=== PATIENT | male | born 1945 | race Caucasian/White ===

== ENCOUNTER 2020-10-01 13:03 | Day surgery (SDC) | payer MEDICARE ==
[2020-09-28 12:57] LABS: Urine WBC None Seen /hpf (0 - 3)
[2020-09-28 12:59] LABS: Basophils # (auto) 0 10 ^3/uL (0-0.2); Basophils % (auto) 0.6 % (0.0-2.0); Eosinophils # (auto) 0.1 10 ^3/uL (0-0.8); Eosinophils % (auto) 1.2 % (0.0-7.0); Hematocrit 42.4 % (41.0-53.0); Hemoglobin 14.5 g/dL (13.5-17.5); Lymphocytes % (auto) 13.4 % (10.0-50.0); Mean Corpuscular Hemoglobin 33.3 pg (28.0-32.0); Mean Corpuscular Hgb Conc. 34.2 g/dL (32.0-36.0); Mean Corpuscular Volume 97.3 fL (80.0-100.0); Monocytes # (auto) 0.7 10 ^3/uL (0-1.3); Monocytes % (auto) 8.7 % (0.0-12.0); Neutrophils # (auto) 5.7 10 ^3/uL (1.6-8.6); Neutrophils % (auto) 76.1 % (37.0-80.0); Red Blood Cells 4.36 10^6/uL (4.5-5.90); Red Cell Distribution Width 13.4 % (11.8-14.3); White Blood Cell 7.6 10^3/uL (4.4-10.8)
[2020-09-28 13:07] LABS: Urine Bacteria NONE SEEN /hpf (None Seen); Urine Blood Negative /uL (Negative); Urine Specific Gravity 1.007 (1.001-1.035)
[2020-09-28 13:23] LABS: Albumin 4.2 g/dL (3.4-5.0); Calcium 8.7 mg/dL (8.5-10.1); Potassium 3.9 mmol/L (3.5-5.1)
[2020-09-28 13:26] LABS: BUN/Creatinine Ratio 14.1; Total Protein 8.4 g/dL (6.4-8.2)
[~2020-10-01] VITALS: Ht 177.8 cm; Wt 80.7 kg
[~2020-10-01 13:03] MED LIST: ATO40T PO; IRBE300T79 PO; OMEP20TA PO; SODI650T PO; VERA240C2 PO
[2020-10-01] MEDS ORDERED: SODIUM CHLORIDE LOCK 10 ML ONE (14:00)
[2020-10-01] MEDS ORDERED: diphenhdrAMINE HCL 50 MG/1 ML VL ONE (14:01)
[2020-10-01] MEDS: MIDAZOLAM HCL 5 MG/ML-1ML VIAL ONE ×2 (15:09→15:15)
[2020-10-01] MEDS: fentaNYL CITRATE 100 MCG/2 ML VL ONE ×2 (15:09→15:15)
[2020-10-08 15:45] VITALS: BP 129/79
== END 2020-10-01 16:10 | disposition home or self-care (01) ==
LOC: GI 13:03
PROVIDERS: ATTEND Internal Medicine Gastroenterology
DX: R19.4 Change in bowel habit (principal); D12.5 Benign neoplasm of sigmoid colon; K64.8 Other hemorrhoids; I10 Essential (primary) hypertension; Z88.0 Allergy status to penicillin; Z79.899 Other long term (current) drug therapy; Z20.822 Contact with and (suspected) exposure to COVID-19; Z86.010 Personal history of colon polyps
CPT/HCPCS: 36415; 45385; 80053; 81001; 85025; J1200; J2250; J3010; J7030; U0003; 45380; G0500

== ENCOUNTER 2020-10-08 13:02 | Day surgery (SDC) | payer MEDICARE ==
[2020-10-05 13:14] LABS: Urine WBC None Seen /hpf (0 - 3)
[2020-10-05 13:23] LABS: Basophils # (auto) 0.1 10 ^3/uL (0-0.2); Basophils % (auto) 1.8 % (0.0-2.0); Eosinophils # (auto) 0.1 10 ^3/uL (0-0.8); Eosinophils % (auto) 1.6 % (0.0-7.0); Hematocrit 39.2 % (41.0-53.0); Hemoglobin 13.8 g/dL (13.5-17.5); Lymphocytes # (auto) 1.1 10 ^3/uL (0.4-5.4); Lymphocytes % (auto) 15.4 % (10.0-50.0); Mean Corpuscular Hemoglobin 33.8 pg (28.0-32.0); Mean Corpuscular Hgb Conc. 35.3 g/dL (32.0-36.0); Mean Corpuscular Volume 95.9 fL (80.0-100.0); Monocytes # (auto) 0.6 10 ^3/uL (0-1.3); Monocytes % (auto) 8.2 % (0.0-12.0); Nucleated Red Blood Cells % 0.1 %; Red Blood Cells 4.09 10^6/uL (4.5-5.90); Red Cell Distribution Width 13.3 % (11.8-14.3); White Blood Cell 6.8 10^3/uL (4.4-10.8)
[2020-10-05 13:27] LABS: Urine Bacteria NONE SEEN /hpf (None Seen); Urine Blood Negative /uL (Negative); Urine Specific Gravity 1.021 (1.001-1.035)
[2020-10-05 13:43] LABS: Potassium 3.8 mmol/L (3.5-5.1)
[2020-10-05 13:52] LABS: Albumin 3.9 g/dL (3.4-5.0); BUN/Creatinine Ratio 14.4; Bilirubin, Total 0.6 mg/dL (0.2-1.0); Calcium 8.7 mg/dL (8.5-10.1); Total Protein 7.7 g/dL (6.4-8.2)
[2020-10-08] MEDS ORDERED: fentaNYL CITRATE 100 MCG/2 ML VL ONE (14:36)
[2020-10-08] MEDS ORDERED: MIDAZOLAM HCL 5 MG/ML-1ML VIAL ONE (14:36)
[2020-10-08] MEDS ORDERED: LIDOCAINE VISCOUS 2% 15ML UD ONE (14:36)
[2020-10-08] MEDS ORDERED: SODIUM CHLORIDE LOCK 10 ML ONE (14:36)
[2020-10-08] MEDS ORDERED: diphenhdrAMINE HCL 50 MG/1 ML VL ONE (14:36)
== END 2020-10-08 16:00 | disposition home or self-care (01) ==
LOC: GI 13:02
PROVIDERS: ATTEND Internal Medicine Gastroenterology
DX: R10.13 Epigastric pain (principal); K21.00 Gastro-esophageal reflux disease with esophagitis, without bleeding; K22.2 Esophageal obstruction; K44.9 Diaphragmatic hernia without obstruction or gangrene; K31.89 Other diseases of stomach and duodenum; K29.50 Unspecified chronic gastritis without bleeding; I10 Essential (primary) hypertension; E78.5 Hyperlipidemia, unspecified; Z90.49 Acquired absence of other specified parts of digestive tract; Z98.890 Other specified postprocedural states; Z79.899 Other long term (current) drug therapy; Z20.822 Contact with and (suspected) exposure to COVID-19
CPT/HCPCS: 36415; 43239; 80053; 81001; 85025; 88305; 88312; 88342; J1200; J2250; J3010; U0003; G0500

== ENCOUNTER 2023-02-25 20:04 | Emergency (ER) | payer MEDICARE ==
[~2023-02-25] VITALS: Ht 177.8 cm; Wt 70.7 kg
[2023-02-25] MEDS ORDERED: ZOFR4T PO (22:15)
[2023-02-25] MEDS ORDERED: ONDANSETRON ODT 4 MG TAB PO ONE (22:15)
[2023-02-25] MEDS ORDERED: HYDROcodone-ACET 5/325MG TAB PO ONE (22:15)
[2023-02-25] MEDS ORDERED: HYDR-4902 PO (22:15)
[2023-02-25 22:18] VITALS: BP 149/99; PULSE 79; RESP 18; TEMP 97.6
[2023-02-25 22:19] VITALS: O2SAT 100
== END 2023-02-25 22:35 | disposition home or self-care (01) ==
LOC: ER 20:04
DX: S06.0X0A Concussion without loss of consciousness, initial encounter (principal); S05.11XA Contusion of eyeball and orbital tissues, right eye, initial encounter; Z88.0 Allergy status to penicillin; W18.09XA Striking against other object with subsequent fall, initial encounter; Y93.89 Activity, other specified; Y92.89 Other specified places as the place of occurrence of the external cause; Y99.8 Other external cause status
CPT/HCPCS: 70450; 70486; 71045; 71046; 72125; 99284; Q0162; 93005